=== PATIENT | male | born 1955 | race African-American/Black ===

== ENCOUNTER 2019-10-10 09:32 | Outpatient (CLI) | payer BC ==
--- NOTE | 2019-10-10 10:13 | XRay Report ---
RIGHT FOOT 3 VIEWS INDICATION / CLINICAL INFORMATION: RIGHT FOOT PAIN. COMPARISON: None available. FINDINGS: BONES/JOINT(S): There is a nondisplaced fracture of the accessory os peroneum. There is no other acut e fracture. There is mild DJD in the first MTP joint. SOFT TISSUES: No significant abnormality. ADDITIONAL FINDINGS: None. Signer Name: Dimitry Mcclendon MD Signed: 10/10/2019 10:09 AM Workstation Name: [id number]
== END 2019-10-10 09:33 | disposition home or self-care (01) ==
LOC: SPVIMAG 09:32
PROVIDERS: ATTEND Internal Medicine
DX: S92.811A Other fracture of right foot, initial encounter for closed fracture (principal); M19.071 Primary osteoarthritis, right ankle and foot; X58.XXXA Exposure to other specified factors, initial encounter; Y93.89 Activity, other specified; Y92.89 Other specified places as the place of occurrence of the external cause; Y99.8 Other external cause status